=== PATIENT | male | born 1995 | race Caucasian/White ===

== ENCOUNTER 2019-05-02 13:30 | Emergency (ER) | payer BC, OTHER ==
[~2019-05-02] VITALS: Ht 182.9 cm; Wt 104.3 kg
[2019-05-02 16:07] VITALS: BP 104/70
[2019-05-02] MEDS ORDERED: TETANUS-DIPTH-ACEL PERTUSSIS 0.5ML SYRG IM ONE (16:45)
[2019-05-02] MEDS ORDERED: IBUPROFEN 800 MG TAB PO ONE (16:45)
== END 2019-05-02 17:39 | disposition home or self-care (01) ==
LOC: ER 13:30
DX: S61.452A Open bite of left hand, initial encounter (principal); W54.0XXA Bitten by dog, initial encounter; Y93.89 Activity, other specified; Y92.89 Other specified places as the place of occurrence of the external cause; Y99.8 Other external cause status
CPT/HCPCS: 73120; 90471; 90715